=== PATIENT | male | born 1950 | race Caucasian/White ===

== ENCOUNTER 2017-08-16 06:52 | Day surgery (SDC) | payer BC ==
[2017-08-16] MEDS ORDERED: Sodium Chloride 0.9% 10 ML Syringe FLUSH PRN (08:00)
[2017-08-16] MEDS ORDERED: Propofol 200 MG/20 ML SDV IV ONE (08:00)
[2017-08-16] MEDS ORDERED: Midazolam 1 MG/ML 2 ML SDV IV ONE (08:00)
[2017-08-16] MEDS ORDERED: Lactated Ringers 1,000 ML IV SCH (08:00)
--- NOTE | 2017-08-16 08:32 | PCM.OPNOTE ---
- General Post-Op/Procedure Note Date of Surgery/Procedure: 08/16/17 Operative Procedure(s): c scope with bx Findings: descending colon polyp sigmoid colon polyp scattered diverticulosis Pre Op Diagnosis: hx of adenomatous colon polyp Post-Op Diagnosis: descending colon polyp. sigmoid colon polyp. scattered diverticulosis Anesthesia Technique: MAC Primary Surgeon: Lenin Bashir Anesthesia Provider: Louise Watt Pathology: descending colon polyp sigmoid colon polyp Complications: None Condition: Good Free Text/Narrative:: see dictation
--- NOTE | 2017-08-16 09:23 | OR ---
DATE OF OPERATION: 08/16/2017 SURGEON: Lenin Bashir MD PROCEDURE PERFORMED: Colonoscopy with cold forceps biopsy. PREOPERATIVE DIAGNOSIS: Personal history of adenomatous polyps. POSTOPERATIVE DIAGNOSIS: Polyp, descending colon and polyp with sigmoid and scattered sigmoid diverticulosis. INDICATIONS FOR PROCEDURE: This is a 66-year-old white male who had 5 adenomas removed last year during colonoscopy, presents now for a followup scope. DESCRIPTION OF PROCEDURE: After an excellent IV sedation was administered, digital rectal exam was performed. No marked abnormality was noted. The flexible colonoscope was inserted and advanced to the cecum without difficulty. The scope was slowly withdrawn and the mucosa inspected. The following findings were noted: Ascending colon, unremarkable. Transverse colon, unremarkable. Descending colon, unremarkable. Small 2 mm polyp, biopsied with cold biopsy forceps and sent for permanent. Sigmoid small polyp, biopsied with cold biopsy forceps and sent for permanent. Occasional diverticula was noted. Rectum and anus were unremarkable. Colon was deflated. Scope was removed. The patient tolerated the procedure, was taken to recovery in good condition. /[id number] /MODL
[2017-08-16 10:05] VITALS: BP 152/86
== END 2017-08-16 10:13 | disposition home or self-care (01) ==
LOC: FB.SDS 06:52
PROVIDERS: ATTEND Surgery
DX: Z12.11 Encounter for screening for malignant neoplasm of colon (principal); D12.5 Benign neoplasm of sigmoid colon; K63.5 Polyp of colon; K57.30 Diverticulosis of large intestine without perforation or abscess without bleeding; I10 Essential (primary) hypertension; E78.5 Hyperlipidemia, unspecified; G47.33 Obstructive sleep apnea (adult) (pediatric); Z86.010 Personal history of colon polyps; Z88.8 Allergy status to other drugs, medicaments and biological substances; Z79.899 Other long term (current) drug therapy
CPT/HCPCS: 45380; 88305; J2250; J2704; J7120

== ENCOUNTER 2020-06-12 02:22 | Emergency (ER) | payer MEDICARE, BC ==
[2020-06-12] MEDS ORDERED: Hydrocortisone/Neomycin/Polymyxin B Ophth Susp 7.5 ML Bottle EYEBOTH ONE (02:23)
--- NOTE | 2020-06-12 02:47 | EDM.PDOC ---
ED HPI GENERAL MEDICAL PROBLEM - General Chief Complaint: Eye Problems Stated Complaint: EYE INJURY Time Seen by Provider: 06/12/20 02:42 Source of Information: Reports: Patient History Limitations: Reports: No Limitations - History of Present Illness INITIAL COMMENTS - FREE TEXT/NARRATIVE: Hit left eye while playing with his grand son. Blunt trauma-end of a rake. Since then,complains of a scratchy feeling,tearing and blurry vision. Denies flashing or floaters.No double vision or headache. 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 Left Eye Pain Score (Numeric/FACES): 4 - Related Data Allergies Allergy/AdvReac Type Severity Reaction Status Date / Time benoxinate Allergy Rash Verified 08/15/17 09:22 fluorescein Allergy Rash Verified 08/15/17 09:22 Home Meds: Home Meds Aspirin [Halfprin] 81 mg PO ASDIRECTED 06/01/16 [History] Cholecalciferol (Vitamin D3) [Vitamin D3] 1,000 unit PO ASDIRECTED 06/01/16 [History] Fluticasone Propionate [Flonase] 1 spray NASBOTH BID PRN 06/01/16 [History] Losartan/Hydrochlorothiazide [Losartan-HCTZ 100-25 MG] 1 each PO DAILY 06/01/16 [History] Ubidecarenone [Coenzyme Q-10] 200 mg PO ASDIRECTED 06/01/16 [History] Acetaminophen [Tylenol] 325 - 650 mg PO Q4H PRN 06/02/16 [History] Naproxen Sodium [Aleve] 220 mg PO ASDIRECTED PRN 06/02/16 [History] Ascorbic Acid 500 mg PO ASDIRECTED 08/15/17 [History] Past Medical History HEENT History: Reports: Impaired Vision, Retinal Detachment Other HEENT History: PAST MELANOMA OF RIGHT EYE Cardiovascular History: Reports: Hypertension, Other (See Below) Other Cardiovascular History: HYPERLIPIDEMIA Respiratory History: Reports: Intubation, Previous, Sleep Apnea, Other (See Below) Other Respiratory History: DIFFICULT INTUBATION Gastrointestinal History: Reports: Colon Polyp Genitourinary History: Reports: Other (See Below) Other Genitourinary History: RENAL COLIC CANVAS SHRINKER History: Reports: None Neurological History: Reports: None Psychiatric History: Reports: None Endocrine/Metabolic History: Reports: None Hematologic History: Reports: None Immunologic History: Reports: None Oncologic (Cancer) History: Reports: Malignant Melanoma, Other (See Below) Other Oncologic History: RIGHT EYE Dermatologic History: Reports: None - Infectious Disease History Infectious Disease History: Reports: Chicken Pox, Measles, Mumps - Past Surgical History Head Surgeries/Procedures: Reports: None HEENT Surgical History: Reports: Detached Retina, Visual Other HEENT Surgeries/Procedures: Vitrectomy- Right eye GI Surgical History: Reports: Hernia Repair/Other Other GI Surgeries/Procedures: BILATERAL INGUINAL HERNIORRAPHY 1 WITH MESH Other Male Surgeries/Procedures: BILATERAL MASTECTOMY FOR GYNECOMSTIA Musculoskeletal Surgical History: Reports: Arthroscopic Knee Social & Family History - Family History : Other Family History: SEE HX - Tobacco Use Smoking Status *Q: Unknown Ever Smoked - Caffeine Use Caffeine Use: Reports: Coffee ED ROS GENERAL - Review of Systems Review Of Systems: Comprehensive ROS is negative, except as noted in HPI. ED EXAM GENERAL W FULL EYE - Physical Exam Exam: See Below Exam Limited By: No Limitations General Appearance: Alert, WD/WN, No Apparent Distress Eye Exam: Left Eye: Conjunctival Injection, Corneal Abrasion, Proptosis Conjunctiva & Sclera: Left: Conjunctival Edema Extraocular Movements: Left: Intact Pupils: Normal Accommodation Pupillary Size: Left: 4 mm Pupillary Reaction: Left: Brisk Anterior Chamber: Left: Normal Appearance Head: Atraumatic Neck: Normal Inspection Course - Vital Signs Last Recorded V/S: Last Vital Signs Temp 98.3 F 06/12/20 02:53 Pulse 74 06/12/20 02:53 Resp 16 06/12/20 02:53 BP 153/71 H 06/12/20 02:53 Pulse Ox 96 06/12/20 02:53 - Orders/Labs/Meds Meds: Medications Discontinued Medications Generic Name Dose Route Start Last Admin Trade Name Freq PRN Reason Stop Dose Admin Neomycin/Polymyxin/Hydrocortisone 7.5 ml 06/12/20 02:23 Cortisporin Ophth Susp EYEBOTH 06/12/20 02:24 .STK-MED ONE Departure - Departure Time of Disposition: 03:03 Disposition: Home, Self-Care 01 Condition: Good Clinical Impression: Corneal abrasion - Discharge Information Instructions: Dexamethasone; Neomycin; Polymyxin B ophthalmic ointment, Corneal Abrasion Referrals: Steve Watts MD [Primary Care Provider] - Forms: ED Department Discharge Additional Instructions: Contact [facility] in the morning at [phone]. Utilize provided eye drops, see print out. Instill 2 drops into left eye three times daily. Sepsis Event Note (ED) - Evaluation Sepsis Screening Result: No Definite Risk - Problem List & Annotations (1) Corneal abrasion SNOMED Code(s): 56938854 Code(s): S05.00XA - INJ CONJUNCTIVA AND CORNEAL ABRASION W/O FB, UNSP EYE, INIT Status: Acute Qualifiers: Encounter type: initial encounter - Problem List Review Problem List Initiated/Reviewed/Updated: Yes - Assessment/Plan Plan: I called [facility],spoke with Ophthalmology,and will have him follow up in AM. I gave him Cortisporin gtt.
[2020-06-12 02:54] VITALS: BP 153/71; PULSE 74
== END 2020-06-12 03:09 | disposition home or self-care (01) ==
LOC: FB.ED 02:22
DX: S05.02XA Injury of conjunctiva and corneal abrasion without foreign body, left eye, initial encounter (principal); H05.20 Unspecified exophthalmos; I10 Essential (primary) hypertension; Z91.041 Radiographic dye allergy status; Z88.4 Allergy status to anesthetic agent; Z79.899 Other long term (current) drug therapy; X58.XXXA Exposure to other specified factors, initial encounter
CPT/HCPCS: 99283; A9270-GY

== ENCOUNTER 2023-07-31 14:25 | Observation (INO) | payer MEDICARE, BC ==
[2023-07-31] MEDS ORDERED: Sodium Chloride 0.9% 10 ML Syringe FLUSH PRN (15:07)
[2023-07-31 15:32] LABS: HEMATOCRIT 42.2 % (38.3-50.1); HEMOGLOBIN 14.3 g/dL (12.9-17.7); MEAN CORPUSCULAR HEMOGLOBIN 32.9 pg (27.0-33.3); MEAN CORPUSCULAR VOLUME 96.9 fL (80.8-98.7); MEAN PLATELET VOLUME 6.7 fL (6.7-11.0); PLATELET COUNT,PLT 284 x10(3)uL (117-477); RED BLOOD CELL COUNT 4.36 x10(6)uL (3.90-5.90); RED CELL DISTRIBUTION WIDTH 14.3 % (12.4-15.0); WHITE BLOOD CELL COUNT,WBC 8.6 x10-3/uL (3.2-10.1)
[2023-07-31 15:44] LABS: BLOOD UREA NITROGEN,BUN 28 mg/dL (7-18); BUN/CREATININE RATIO 18.7 (9-20); CALCIUM 9.5 mg/dL (8.6-10.2); CARBON DIOXIDE,CO2 28 mmol/L (21-32); CHLORIDE,CL 103 mmol/L (100-110); CREATININE 1.5 mg/dL (0.70-1.30); EST CRCL DRUG DOSING (CG) 49.55 mL/min; ESTIMATED GFR 50 mL/min (>60); GLUCOSE RANDOM 125 mg/dL (80-116); POTASSIUM,K 3.6 mmol/L (3.5-5.3); SODIUM,NA 139 mmol/L (135-145)
[2023-07-31 15:49] LABS: BASE EXCESS VENOUS,POC 2 mmol/L (-2 - 3+); PCO2 VENOUS,POC 33 mmHg (41-51); PH VENOUS,POC 7.49 pH Units (7.32-7.43)
[2023-07-31 15:55] LABS: A/G RATIO 0.6; ALANINE AMINOTRANSFERASE,ALT 129 U/L (12-36); ALBUMIN 2.4 g/dL (3.2-4.6); ALKALINE PHOSPHATASE 354 IU/L (56-112); BILIRUBIN TOTAL 1.7 mg/dL (0.1-1.3); PROTEIN TOTAL,TP 6.3 g/dL (6.0-8.0)
[2023-07-31 15:58] LABS: ASPARTATE AMNIOTRANSFERASE,AST 174 IU/L (5-25)
[2023-07-31] MEDS ORDERED: Sodium Chloride 0.9% 500 ML IV ONE (16:03)
[2023-07-31 16:07] LABS: BAND PERCENT MAN 5 % (0-6); LYMPHOCYTES PERCENT MAN 8 % (13-37); MONOCYTES PERCENT MAN 6 % (4-12); SEG NEUTROPHILS PERCENT MAN 81 % (46-82)
[2023-07-31 16:08] LABS: INR 1.06 (1.00-1.24); PROTHROMBIN TIME 10.9 sec (9.0-11.1); PTT,PARTIAL THROMBOPLSTIN TIME 26.1 SECONDS (24.4-33.2)
[2023-07-31 16:22] LABS: TROPONIN I 7.2 pg/mL (4.0-60.3)
[2023-07-31 16:23] LABS: C-REACTIVE PROTEIN 5.35 mg/dL (<0.50)
[2023-07-31] MEDS ORDERED: Iopamidol 755 Mg/ML 100 ML Bottle IV SCH (18:00)
[2023-07-31] MEDS ORDERED: Ondansetron 4 MG/2 ML SDV IV PRN (20:03)
[2023-07-31] MEDS ORDERED: Acetaminophen 325 MG Tab PO PRN (20:03)
[2023-07-31] MEDS ORDERED: Melatonin 3 MG Tab ONE (21:46)
[2023-07-31] MEDS: Rivaroxaban 15 MG Tab PO SCH (21:55)
[2023-07-31] MEDS: Hydrochlorothiazide 12.5 MG Cap PO SCH (21:55)
[2023-07-31] MEDS: Losartan 50 MG Tab PO SCH (21:55)
[2023-08-01 06:54] LABS: HEMATOCRIT 39.9 % (38.3-50.1); HEMOGLOBIN 13.6 g/dL (12.9-17.7); MEAN PLATELET VOLUME 6.7 fL (6.7-11.0); PLATELET COUNT,PLT 268 x10(3)uL (117-477); RED BLOOD CELL COUNT 4.11 x10(6)uL (3.90-5.90); RED CELL DISTRIBUTION WIDTH 14.3 % (12.4-15.0); WHITE BLOOD CELL COUNT,WBC 9.2 x10-3/uL (3.2-10.1)
[2023-08-01 07:00] LABS: BLOOD UREA NITROGEN,BUN 32 mg/dL (7-18); CALCIUM 9.2 mg/dL (8.6-10.2); CARBON DIOXIDE,CO2 27 mmol/L (21-32); CHLORIDE,CL 103 mmol/L (100-110); CREATININE 1.6 mg/dL (0.70-1.30); EST CRCL DRUG DOSING (CG) 45.76 mL/min; ESTIMATED GFR 46 mL/min (>60); GLUCOSE RANDOM 93 mg/dL (80-116); MAGNESIUM 1.9 mg/dL (1.8-2.5); POTASSIUM,K 3.7 mmol/L (3.5-5.3); SODIUM,NA 137 mmol/L (135-145)
[2023-08-01 07:17] LABS: EOSINOPHILS PERCENT MAN 1 % (0-5); LYMPHOCYTES PERCENT MAN 4 % (13-37); MONOCYTES PERCENT MAN 8 % (4-12); SEG NEUTROPHILS PERCENT MAN 87 % (46-82)
[2023-08-01] MEDS: Losartan 50 MG Tab PO SCH (09:03)
[2023-08-01] MEDS: Rivaroxaban 15 MG Tab PO SCH (09:03)
[2023-08-01] MEDS: Hydrochlorothiazide 12.5 MG Cap PO SCH (09:03)
[2023-08-01] MEDS ORDERED: FLU (Fluad Quad) 2023-24(65UP)/MF59C/PF 60 MCG/0.5 ML Syringe IM ONE (10:00)
[2023-08-01 10:22] VITALS: BP 101/53; PULSE 80
[2023-08-01] MEDS ORDERED: Melatonin 3 MG Tab PO SCH (21:00)
== END 2023-08-01 10:35 | disposition home or self-care (01) ==
LOC: FB.ED 14:25 → FB.MS 20:32
PROVIDERS: ADMIT Emergency Medicine; ATTEND Family Medicine
DX: I26.99 Other pulmonary embolism without acute cor pulmonale (principal); C43.9 Malignant melanoma of skin, unspecified; R06.09 Other forms of dyspnea; I12.9 Hypertensive chronic kidney disease with stage 1 through stage 4 chronic kidney disease, or unspecified chronic kidney disease; N18.31 Chronic kidney disease, stage 3a; E78.5 Hyperlipidemia, unspecified; G47.30 Sleep apnea, unspecified; Z79.899 Other long term (current) drug therapy; Z79.82 Long term (current) use of aspirin; Z88.8 Allergy status to other drugs, medicaments and biological substances
CPT/HCPCS: 36415; 71045; 71275; 80048; 80053; 83735; 83880; 84484; 85025; 85379; 85610; 85730; 86140; 90694; 93005; 93010; 96360; 99222; 99238; 99285; 99285-25; A9270-GY; G0008; G0378; J3490; J7040; Q9967